=== PATIENT | male | born 1995 | race Hispanic/Latino ===

== ENCOUNTER 2020-07-11 10:18 | Outpatient (CLI) | payer BC ==
--- NOTE | 2020-07-11 10:49 | ULT ---
US Testicular W Doppler History: Testicular pain Comparison: None. Findings: Real-time grayscale, color and spectral analysis of the testicles was performed. Right testicle measures 4.8 x 2.3 x 3.1 cm and the left testicle measures 4.1 x 2.1 x 2.2 cm. Adequat e vascular flow to both testicles. No testicular mass. Left epididymal cyst measures 1 cm in size. Impression: Normal echogenicity and flow to both both testicles. Small left epididymal cyst measuring 1 cm.
== END 2020-07-11 10:19 | disposition home or self-care (01) ==
LOC: BICULT 10:18
PROVIDERS: ATTEND Family Medicine
DX: N50.811 Right testicular pain (principal); N50.3 Cyst of epididymis
CPT/HCPCS: 76870; 93976